=== PATIENT | female | born 1980 | race Caucasian/White ===

== ENCOUNTER 2021-01-25 09:04 | Outpatient (CLI) | payer OTHER, SELFPAY ==
--- NOTE | 2021-02-09 19:58 | WPDHOMESLEEP ---
Sleep Study - Home Unattended Date of Study: 01/25/21 Ordering Provider: Candie Rico, TALI Interpreting Provider: Tea Sutherland MD [facility] Type: Watch PAT Height: 1.65 m Weight: 56.699 kg Body Mass Index: 20.7 Neck Circumference (inches): 12.5 [place]: 8 Reason for Sleep Study Difficulty staying asleep Sleep History Yuri Vasquez is a 40 year old female who has difficulty staying asleep. She wakes around 2:00 a.m. and has a difficult time returning to sleep. She wakes again around 4:00 a.m.. She has taken melatonin which has not helped. She frequently snores and is frequently loud enough that others complain about it. She does not awaken at night with heartburn, belching or coughing. She rarely awakens from sleep feeling short of breath. She does not have trouble sleep with a cold. She rarely wakes up gasping for breath at night. She occasionally has breathing problems at night observed by others. She occasionally sweats excessively at night. She does not notice her heart pounding or beating irregularly night. She rarely falls asleep during the day, never involuntarily or while driving the car. She does not have loss of muscle tone with strong emotion. She occasionally has daytime difficulties due to excessive sleepiness. She does not feel paralyzed on waking or falling asleep. She does not have vivid dreamlike scenes upon awakening or falling asleep. She does not feel afraid to go to sleep. She denies having nightmares. She occasionally remembers her dreams. She frequently has racing thoughts. She does not feel sad or depressed. She rarely has anxiety. She does not have muscular tension. She does not notice parts of her body jerking. She rarely kicks at night. She does not have crawling or aching feelings in her legs and she does not have any kind of leg pain at night. She does not have morning jaw pain. She denies grinding her teeth during sleep. She is not bothered by pain during the day and is not awakened by pain at night. She does not wake up feeling stiff in the morning with sore or achy muscles. She does not wake up with pain in the spine. Normal bedtime is 8:00 p.m. falling asleep and under 10 minutes. She wakes up 4 or 5 times during the night. Sometimes she stays awake as long as an hour before returning to sleep. She wakes in the morning between 4:00 and 5:00 a.m. Her weekend schedule is the same. She does not generally take naps. A short nap may be refreshing. Habits: Former tobacco smoker. Caffeine 2 cups of coffee in the morning. [facility] Past Medical History Medical History (Updated 02/09/21 @ 21:04 by Tea Sutherland MD) Anxiety and depression Bladder spasms Fatigue Seasonal allergies Snoring Surgical History Surgical History (Updated 02/09/21 @ 20:12 by Tea Sutherland MD) Previous section 2007 Social History Social History (Updated 02/09/21 @ 20:13 by Tea Sutherland MD) Smoking status: Former smoker Medications Medications: Myrbetriq/mirabegron 25 mg a day for bladder spasms Fish oil Multivitamin Sleep Procedure The sleep study was completed using [employer] a technically adequate device with seven channels: peripheral arterial tone, actigraphy, body position, snore, respiratory movement, pulse oximetry, sleep staging, and heart rate. Prior to using the device, the patient received verbal and written instructions for its application and was provided with the help desk phone number for additional telephonic instruction with 24-hour availability of qualified personnel to answer questions. The study was scored using CMS guidelines. This study was scored using CMS guidelines. Sleep Architecture The recording time is 9 hours 44 minutes. The sleep time is 9 hours 2 minutes. Sleep latency is 19 minutes. REM latency is 77 minutes. She had 6 episodes awakening after sleep onset. The patient spent 7.2% of the study awake after sleep onset. Sleep
[2021-02-09 20:07] VITALS: BMI 20.7
== END 2021-01-25 09:05 | disposition home or self-care (01) ==
PROVIDERS: PCP Physician Assistant; Visit Provider Physician Assistant
DX: G47.9 Sleep disorder, unspecified (principal); R06.83 Snoring
CPT/HCPCS: 95800